=== PATIENT | female | born 1995 | race Caucasian/White ===

== ENCOUNTER 2016-10-03 07:38 | Emergency (ER) | payer SELFPAY ==
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
[2016-10-03] MEDS ORDERED: IBUPROFEN 200 MG TAB PO ONE (08:05)
[2016-10-03] MEDS ORDERED: HYDROCOD/APAP 5/325 PREPACK#6 BTL TAKEHOME ONE ×2 (08:17→08:19)
[2016-10-03 08:51] VITALS: BP 121/65; PULSE 76; RESP 15; TEMP 98.5; O2SAT 98
== END 2016-10-03 08:20 | disposition home or self-care (01) ==
DX: S93.402A Sprain of unspecified ligament of left ankle, initial encounter (principal); X58.XXXA Exposure to other specified factors, initial encounter; Y99.8 Other external cause status; Y93.89 Activity, other specified
CPT/HCPCS: L4350